=== PATIENT | male | born 1990 | race Caucasian/White ===

== ENCOUNTER 2018-08-16 19:15 | Emergency (ER) | payer SELFPAY ==
[2018-08-16 20:06] LABS: #Basophils 0.1 thou/uL (0.0-0.2); #Eosinphils 0.2 thou/uL (0.0-0.7); #Lymphocytes 3.8 thou/uL (1.20-3.40); #Monocytes 0.6 thou/uL (0.11-0.59); #Neutrophils 4.2 thou/uL (1.40-6.50); %Basophils 0.7 % (0.0-1.0); %Eosinophils 2.2 % (0.0-10.0); %Monocytes 6.5 % (0.0-10.0); %Neutrophils 47.5 % (42.0-75.0); Hemoglobin 16.5 g/dL (14.0-18.0); Mean Corpuscular HGB CONC 33.8 g/dL (32.0-36.0); Mean Corpuscular Volume 88.6 fL (78.0-98.0); Mean Platelet Volume 6.8 fL (7.4-10.4); Platelet Count 327 thou/uL (130-400); RBC Distribution Width 11.2 % (11.5-14.5); Red Blood Cell (RBC) Count 5.51 mill/uL (4.70-6.10); White Blood Cell (WBC) Count 8.9 thou/uL (4.8-10.8)
--- NOTE | 2018-08-16 20:22 | RAD ---
CHEST TWO VIEWS: History: Chest pain. FINDINGS: Cardiac silhouette and pulmonary vasculature are unremarkable. Mediastinum is midline. No confluent a irspace consolidation, pneumothorax, or pleural fluid. Pectus excavatum apparent on the lateral view. IMPRESSION: No active cardiopulmonary abnormalities are demonstrated. POS: [facility]
[2018-08-16 20:31] LABS: ALT (SGPT) 53 U/L (8-55); AST (SGOT) 28 U/L (5-34); Albumin 4.6 g/dL (3.5-5.0); Alkaline Phosphatase 82 U/L (40-150); Anion Gap 12 mmol/L (10-20); BUN (Urea Nitrogen) 11 mg/dL (8.9-20.6); Bilirubin, Total 0.5 mg/dL (0.2-1.2); Calc. Creatinine Clearance 0 mL/min (70-130); Calcium 9.8 mg/dL (7.8-10.44); Carbon Dioxide 22 mmol/L (22-29); Chloride 106 mmol/L (98-107); Estimated GFR-MDRD Greater than 90; Globulin 3.2 g/dL (2.4-3.5); Glucose 91 mg/dL (70-105); Potassium 4.2 mmol/L (3.5-5.1); Protein, Total 7.8 g/dL (6.0-8.3); Sodium 136 mmol/L (136-145)
[2018-08-16] MEDS ORDERED: Aspirin Chewable 81 MG TAB ONE (20:43)
[2018-08-16] MEDS ORDERED: Ibuprofen 800 MG TAB ONE (22:29)
== END 2018-08-17 00:27 | disposition home or self-care (01) ==
LOC: ERS 19:15
DX: R07.89 Other chest pain (principal); F17.220 Nicotine dependence, chewing tobacco, uncomplicated; Z86.711 Personal history of pulmonary embolism; Z79.01 Long term (current) use of anticoagulants
CPT/HCPCS: 36415; 71046; 80053; 84484; 85025; 85379; 93005

== ENCOUNTER 2019-09-27 00:12 | Observation (INO) | payer OTHER, SELFPAY ==
[2019-09-27] MEDS ORDERED: Morphine 4 MG/ML VIAL ONE (01:29)
[2019-09-27] MEDS ORDERED: Ondansetron PF 4 MG/2 ML Vial ONE ×2 (01:29→09:58)
[2019-09-27] MEDS ORDERED: Dextrose 50% Abboject 50 ML SYRINGE SLOW IVP PRN (02:48)
[2019-09-27] MEDS ORDERED: Cyclobenzaprine 10 MG TAB PO PRN (02:48)
[2019-09-27] MEDS ORDERED: traMADol HCl 50 MG TAB PO PRN (02:48)
[2019-09-27] MEDS ORDERED: Dextrose 5% in Water 1,000 ML IV PRN (02:48)
[2019-09-27] MEDS ORDERED: Ondansetron PF 4 MG/2 ML Vial IVP PRN (02:48)
[2019-09-27] MEDS ORDERED: Ondansetron ODT 4 MG TAB PO PRN (02:48)
[2019-09-27 02:54] VITALS: BMI 37.5
[2019-09-27] MEDS: traMADol HCl 50 MG TAB PO SCH ×4 (03:04→20:57)
[2019-09-27] MEDS: Acetaminophen 500 MG TAB PO SCH ×4 (03:04→20:57)
[2019-09-27] MEDS: Ibuprofen 800 MG TAB PO SCH ×3 (03:04→18:55)
--- NOTE | 2019-09-27 03:33 | HP ---
REQUESTING PHYSICIAN: . ATTENDING SURGEON: Dr. Mcfarlane. CONSULTATIONS: Orthopedics, Dr. Mena. HISTORY OF PRESENT ILLNESS: The patient is a 28-year-old man who was transferred here from the [facility] status post having his left foot going through a floor in which he sustained a left calcaneus fracture, distal fibular fracture, and navicular fracture. The patient was transferred to our facility for orthopedic evaluation and possible admission. The patient denied loss of consciousness and his left foot and ankle are his only chief complaint. ALLERGIES: NONE. CURRENT MEDICATIONS: The patient takes [id number] allergy medicines. PAST MEDICAL HISTORY: Prior history of pulmonary embolus treated with Xarelto in 2016. PAST SURGICAL HISTORY: Right femur ORIF. SOCIAL HISTORY: The patient lives at home with his spouse. He drinks rarely and chews tobacco. Denies drug use. 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 REVIEW OF SYSTEMS: 10-point review of systems is negative as otherwise stated. PHYSICAL EXAMINATION: VITAL SIGNS: Blood pressure is 142/85, heart rate 81, respirations 16, oxygen saturation 95% on room air, and temperature is 97.8. GENERAL: The patient is resting comfortably in bed. He is awake, alert, and oriented. [place] Coma Scale is 15. HEENT: Head is normocephalic. Eyes, extraocular motion intact. PERRLA bilaterally. Ears are atraumatic without discharge. Nose is atraumatic without discharge. Oropharynx is clear. NECK: Nontender. Trachea is midline. No JVD. CHEST: Clear to auscultation with good inspiratory and expiratory effort. HEART: Regular rate and rhythm. ABDOMEN: Soft, flat, nontender with active bowel sounds. EXTREMITIES: Neurovascularly intact x4. Left lower extremity is in a pre-hospital splint, he is neurovascularly intact. He does show global swelling to the posterior foot and ankle. Sensation is intact. Pulses are 2+. BACK: Atraumatic and nontender. LABORATORY DATA: There are no labs to review. RADIOGRAPHS: Views of the left ankle show a likely depression type fracture of the calcaneus as well as a retracted distal fibular fracture below the syndesmosis. There is also an osseous avulsion of the medial margin of the navicular. CT examination of the left lower extremity without contrast shows a Mares type 4 fracture of the calcaneus with a 13 mm separation of fracture fragments, mid calcaneus with moderately severe comminution. Fracture lines extend into the posterior and middle facet. There is a fracture involving the posterior aspect of the lateral malleolus with laterally displaced fragment over the distance of 1.3 cm. There are small chip fractures of the inferior lateral and medial aspect of the navicular, possibly nondisplaced fracture involving the distal aspect of the tibia laterally adjacent to the fibula. ASSESSMENT: 1. Status post partial fall through nisa of approximately 2 feet. 2. Fracture of left hind foot and ankle. 3. Acute pain secondary to above. PLAN: Plan will be to admit the patient to the surgical floor for evaluation in the morning with Orthopedics. Per brief discussion with Dr. Mena, the patient likely will have to wait 7-10 days due to expected swelling from this injury. We will admit him for pain control, pulmonary toilet, gastritis and mechanical VTE prophylaxis. We will have him placed in a splint and begin work with physical and occupational therapy. The evaluation, examination, laboratory, and radiographic findings were discussed with Dr. Mcfarlane after this dictation. Job ID: [id number]
[2019-09-27] MEDS: Sodium Chloride 0.9% 1,000 ML IV SCH ×2 (06:52→15:49)
[2019-09-27] MEDS ORDERED: CEFAZOLIN 2 GM in Premix Bag 1 BAG IVPB SCH (08:00)
[2019-09-27 08:16] LABS: #Basophils 0.1 thou/uL (0.0-0.2); #Eosinphils 0.2 thou/uL (0.0-0.7); #Lymphocytes 3.5 thou/uL (1.20-3.40); #Monocytes 0.8 thou/uL (0.11-0.59); #Neutrophils 7.4 thou/uL (1.40-6.50); %Basophils 0.5 % (0.0-1.0); %Eosinophils 1.8 % (0.0-10.0); %Lymphocytes 29.1 % (21.0-51.0); %Monocytes 6.4 % (0.0-10.0); %Neutrophils 62.2 % (42.0-75.0); Hemoglobin 15.5 g/dL (14.0-18.0); Mean Corpuscular HGB CONC 32.9 g/dL (32.0-36.0); Mean Corpuscular Hemoglobin 30.2 pg (27.0-31.0); Mean Corpuscular Volume 91.8 fL (78.0-98.0); Mean Platelet Volume 7.1 fL (7.4-10.4); Platelet Count 282 thou/uL (130-400); RBC Distribution Width 11.5 % (11.5-14.5); Red Blood Cell (RBC) Count 5.13 mill/uL (4.70-6.10); White Blood Cell (WBC) Count 11.9 thou/uL (4.8-10.8)
[2019-09-27 08:39] LABS: Anion Gap 13 mmol/L (10-20); BUN (Urea Nitrogen) 12 mg/dL (8.9-20.6); Calc. Creatinine Clearance 222 mL/min (70-130); Calcium 9.1 mg/dL (7.8-10.44); Carbon Dioxide 26 mmol/L (22-29); Chloride 103 mmol/L (98-107); Estimated GFR-MDRD Greater than 90; Glucose 85 mg/dL (70-105); Magnesium 1.9 mg/dL (1.6-2.6); Phosphorus 4.8 mg/dL (2.3-4.7); Sodium 138 mmol/L (136-145)
--- NOTE | 2019-09-27 09:31 | CT ---
PRELIMINARY REPORT/[facility]/EMERGENCY AFTER HOURS PROCEDURE: PROCEDURE: CT LEFT lower extremity without contrast. HISTORY: LEFT foot and ankle fracture with decreased sensation LEFT foot. TECHNIQUE: Axial images were done through the LEFT ankle and foot without contrast with multiplanar r eformations. COMPARISONS: None . FINDINGS: Mares type IV fracture to the calcaneus with 13 mm of separation of fracture fragments mid calcaneu s with moderately severe comminution. Fracture lines extend into the posterior and middle facet.. Fracture involving posterior aspect of the lateral malleolus with laterally displaced to centimeter f ragment over a distance of 1.3 cm. Small chip fractures off the inferior lateral and medial aspect of the navicular. Possible nondisplaced fracture involving distal aspect of the tibia laterally adjacent to the fibula. No other fracture or dislocation. Mild soft tissue hemorrhage about the fracture sites. IMPRESSION: Mares type IV fracture involving calcaneus with involvement of the posterior facet and separation o f fracture fragments with moderately severe comminution. Fracture involving lateral malleolus and navicular as described above. Soft tissue hemorrhage. ELECTRONICALLY SIGNED BY: Marco A Blue MD September 27, 2019 1:18:02 AM CDT This report is intended for review by the ordering physician only, in accordance of law. If you recei ve this report in error, please call [facility] at [phone]. FINAL REPORT CT OF LEFT FOOT PERFORMED WITHOUT CONTRAST ENHANCEMENT: HISTORY: The patient fell through a roof. FINDINGS: There is a comminuted intraarticular fracture of the calcaneus present. The fracture has 3 main comp onents. There is a sagittal obliquely oriented fracture line. This fracture line is lateral to the groove of the flexor halluces longus tendon. The sustentaculum glenis maintains a fairly normal articu lar relationship with the talus. The central third of this fracture is a comminuted depressed fragme nted fracture that involves the medial half of the articular surface of the posterior talar articular surface. The fragment is very comminuted. The lateral third of this fracture is displaced laterall y. It lies slightly perched on the lateral margin of the talus and actually directly abuts the dista l end poof the fibula. There is an associated fracture along the posterior lateral margin of the dis tanvir fibula. This fracture fragment forms a part of the groove of the peroneus longus and brevis tend ons which still lie directly posterior to this fracture fragment. Fracture line extends to the later al margin of the calcaneal cuboid joint. Fracture does extend to involve the anterior process of the calcaneus which is somewhat comminuted in appearance. Also noted is a navicular fracture with small avulsion fracture involving the medial edge of the pedro cular at the level of the posterior tibialis tendon insertion. In addition, there is a small avulsio n fracture involving the more lateral plantar surface of the navicular. This is at the level of the spring ligament complex. No associated medial malleolar fracture is visualized. IMPRESSION: 1. Comminuted intraarticular calcaneal fracture as discussed above also with a distal fibular fractu re and small avulsion fractures from the navicular. 2. Findings are in agreement with the temporary report issued by [facility]. [place] [facility] [place]
[2019-09-27] MEDS ORDERED: Lidocaine 1% PF 5 ML VIAL ONE (09:58)
[2019-09-27] MEDS ORDERED: Dexamethasone 20 MG/5 ML VIAL ONE (09:58)
[2019-09-27] MEDS ORDERED: Glycopyrrolate 0.2 MG/ML 5 ML SYRINGE ONE (09:58)
[2019-09-27] MEDS ORDERED: PROPOFOL 200 MG/20 ML VIAL ONE (09:58)
[2019-09-27] MEDS ORDERED: PHENYLEPHRINE-NS 100 MCG/ML 10 ML SYRINGE ONE (09:58)
[2019-09-27] MEDS ORDERED: EPHEDRINE 25 MG/5 ML SYRINGE ONE (09:58)
[2019-09-27] MEDS ORDERED: Rocuronium Bromide 10 MG/ML (10ML VIAL) ONE (09:58)
[2019-09-27] MEDS ORDERED: Succinylcholine Chloride 20 MG/ML 10 ml SYRINGE FS ONE (09:58)
[2019-09-27] MEDS ORDERED: Morphine 4 MG/ML VIAL SLOW IVP PRN (10:03)
--- NOTE | 2019-09-27 10:26 | CON ---
DATE OF CONSULTATION: 09/27/2019 CHIEF COMPLAINT: Left foot pain. HISTORY OF PRESENT ILLNESS: Mr. Painting is a 28-year-old male, who was helping a friend move a gun safe yesterday evening. The patient's foot broke through the floor and he fell approximately 2 feet. He landed hard on his left leg. He was loading his leg with a gun safe weight as well. He had pain and swelling. He was taken to the emergency department. X-rays determined a calcaneus fracture as well as a lateral fibular fracture. He has been splinted and admitted to the hospital. He is currently resting comfortably. He has received pain medications. Of note, he has had a previous femur fracture on the right leg and had a DVT, postoperative. This was several years ago. PAST MEDICAL HISTORY: DVT, otherwise he denies active medical problems. PAST SURGICAL HISTORY: Right femur intramedullary nail. ALLERGIES: NO KNOWN DRUG ALLERGIES. MEDICATIONS: No active medications. SOCIAL HISTORY: The patient drinks alcohol occasionally. Denies tobacco or drug use. 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 FAMILY MEDICAL HISTORY: Noncontributory. IMAGING STUDIES: X-rays of the left calcaneus as well as CT scan are reviewed, which demonstrates an impacted and displaced calcaneal fracture. The patient also has a distal fibular fracture. PHYSICAL EXAMINATION: VITAL SIGNS: Temperature is 98.1, pulse is 83, respiratory rate is 18, blood pressure is 126/83. GENERAL: He is alert and oriented, sitting upright in no apparent distress. RESPIRATORY: Breathing comfortably. ABDOMEN: Soft, nontender, and nondistended. MUSCULOSKELETAL: The patient's left lower extremity has minimal swelling. His splint was removed. There is no blistering. Skin is intact and wrinkles. He is tender to palpation of the distal fibula. He has intact sensation in the dorsal and plantar foot. He is able to move the toes. IMPRESSION: Left calcaneal fracture and distal fibular fracture. PLAN: At this point, the patient will require surgical intervention. He really has minimal swelling and I think his skin is amenable to surgical correction today. We will plan for open reduction and internal fixation of the calcaneus. He is aware of risks and benefits. Risks to include DVT, especially given his history and he will need to be on blood thinners. He is also at risk for wound complication, bone healing complication, infection, and others. He will be n.p.o. until after surgery. He will have antibiotics on-call to the operating room. Job ID: [id number]
--- NOTE | 2019-09-27 13:18 | PRG ---
DATE OF SERVICE: 09/27/2019 SUBJECTIVE: The patient was seen this morning during rounds. He was sitting up in bed with no signs of acute distress. His left lower extremity was splinted. He is pending to go to the OR today for fixation of his left calcaneal and left distal fibular fracture by Dr. Mena of Orthopedic Surgery. He reported his pain had been well controlled, but more recently reported pain /10. OBJECTIVE: VITAL SIGNS: Temperature 97.9, pulse 64, respirations 16, oxygen saturation 93% on room air, and blood pressure 117/76. GENERAL: Well-appearing young male, sitting up in bed with no signs of acute distress. PULMONARY: Equal chest rise and fall. Clear breath sounds bilaterally. No signs of acute respiratory distress. CARDIAC: Regular rate and rhythm. GI: Abdomen is soft, nontender, nondistended. EXTREMITIES: 2+ pulses in all extremities. Gross motor and sensation intact. No significant swelling noted. Left lower extremity with splint to foot and tib-fib that is clean, dry, and intact with no signs of oozing. NEUROLOGIC: GCS is 15. LABORATORY FINDINGS: White count 11.9, hemoglobin 15.5, hematocrit 47.1, platelets 282. Sodium 138, potassium 4.0, chloride 103, bicarb 26, BUN 12, creatinine 0.89, phosphorus 4.8, magnesium 1.9. DIAGNOSTIC FINDINGS: There are no new diagnostic findings to report. ASSESSMENT: 1. Status post fall through nisa. 2. Left calcaneal fracture. 3. Left distal fibular fracture. 4. History of deep venous thrombosis after previous femur fracture several years ago. PLAN: Continue current n.p.o. status. Continue maintenance IV fluids. Continue p.o. and IV pain medications. The patient to go to the OR today with Ortho. We will follow up further recommendations postop and advance diet as well as discontinue IV fluids. The patient will likely be able to go home at the time of discharge and not require rehab placement. He will need to be discharged with chemo DVT prophylaxis with his history of DVT in the past. This patient was seen and examined by Dr. Rivera and myself this morning during rounds. Job ID: [id number]
[2019-09-27] MEDS ORDERED: Fentanyl 100 MCG/2 ML VIAL ONE ×2 (14:04→16:31)
[2019-09-27] MEDS ORDERED: Lidocaine 1% (PF) 30 ML VIAL ONE (15:36)
[2019-09-27] MEDS ORDERED: Bupivacaine 0.25% HCL 30 ML VIAL ONE (15:37)
--- NOTE | 2019-09-27 15:51 | RAD ---
Exam:Intraoperative fluoroscopy HISTORY: Calcaneal fracture COMPARISON: None FINDINGS: 4 fluoroscopic views demonstrate internal fixation traversing the calcaneus. Fracture lucen cy is noted. Exposure: 35.6 seconds. 1.08 mGy IMPRESSION: Intraoperative fluoroscopy
[2019-09-27] MEDS ORDERED: Morphine Sulfate 2 MG/ML SYRINGE SLOW IVP PRN (16:01)
[2019-09-27] MEDS ORDERED: PACU-Morphine 4MG/ML VIAL SLOW IVP PRN (16:01)
[2019-09-27] MEDS ORDERED: Ondansetron HCl/PF 4 MG/2 ML Vial IVP PRN (16:01)
[2019-09-27] MEDS ORDERED: Promethazine HCl 25 MG/ML VIAL IM PRN (16:01)
[2019-09-27] MEDS ORDERED: HYDROmorphone 2 MG/ML VIAL SLOW IVP PRN (16:01)
[2019-09-27] MEDS ORDERED: Promethazine HCl 25 MG/ML VIAL SLOW IVP PRN (16:01)
[2019-09-27] MEDS ORDERED: Promethazine HCl 25 MG/ML VIAL ONE (16:15)
--- NOTE | 2019-09-27 23:58 | OP ---
DATE OF PROCEDURE: 09/27/2019 OPERATION PERFORMED: Open reduction, internal fixation of left calcaneus fracture and open reduction of left distal fibular fracture. PREOPERATIVE DIAGNOSES: Left displaced intra-articular calcaneus fracture with subtalar dislocation and distal fibular fracture. POSTOPERATIVE DIAGNOSES: Left displaced intra-articular calcaneus fracture with subtalar dislocation and distal fibular fracture. COMPLICATIONS: None. ESTIMATED BLOOD LOSS: Minimal. DISTRIBUTION OPERATIONS SUPERVISOR: Santos Márquez. IMPLANT: Synthes subtalar plate with multiple nonlocking screws 2.7 mm. INDICATIONS: Mr. Painting is a 28-year-old male who fractured his calcaneus after stepping through a floor. He had a partial dislocation of his subtalar joint with a split calcaneus. He was indicated for open reduction, internal fixation of the calcaneus as well as exploration of his peroneal tendons with reduction of the distal fibula fracture. DESCRIPTION OF PROCEDURE: Mr. Paniting was identified in the preoperative holding area. His correct extremity was marked. He was carried to the operating room. He was positioned supine. General anesthesia was induced. A multidisciplinary time-out was performed. The left lower extremity was prepped and draped in sterile fashion. We converted the patient to the lateral decubitus position. At this point, we proceeded to perform a posterolateral incision over the fibula following the peroneal tendons. We dissected down to the tendon sheath. The sheath was opened and the tendons were retracted inferiorly. This brought us down to the subtalar joint. We encountered the dislocated lateral calcaneus and identified the subtalar joint. We placed a Steinmann pin in the calcaneus. We pulled traction on this. We were able then to reduce the dislocation back to its anatomic position. This reduced our calcaneal fracture well. We took x-ray images confirming this. We then applied a Synthes subtalar rim plate. We applied multiple screws across the split fracture site. Again, we guided these with intraoperative x-ray. We took final images. We checked range of motion. There were no complications. We thoroughly irrigated with copious lavage. We then repaired the peroneal retinaculum supporting our tendons. Next, we finished our layered closure. A sterile dressing was applied at this point without complication. Job ID: [id number]
--- NOTE | 2019-09-28 | PRG ---
DATE OF SERVICE: 09/27/2019 SUBJECTIVE: The patient was seen during evening rounds. The patient is awake, alert, in no distress. The patient's pain is controlled at this time. The patient does report some muscular spasms earlier. The patient is tolerating a regular diet. The patient voices no complaints or concerns at this time. The patient states he has not ambulated since he has returned from surgery. OBJECTIVE: VITAL SIGNS: Temperature 98.0, pulse 63, respirations 18, SpO2 of 93% on room air, blood pressure 129/79. GENERAL: Well-appearing young male, sitting up in bed, in no acute distress. PULMONARY: Good inspiratory and expiratory effort. Respirations are even and nonlabored. CARDIAC: Regular rate and regular rhythm. EXTREMITIES: Moves all extremities. Left lower extremity with splint and dressing clean, dry, and intact. NEUROLOGIC: No focal deficits. GCS 15. ASSESSMENT: 1. Status post fall through nisa. 2. Left calcaneus fracture, postop repair. 3. Left distal fibular fracture. 4. History of deep venous thrombosis. PLAN: Continue regular diet and supportive care. Continue pain regimen. Continue Lovenox for VTE prophylaxis. We will have Physical and Occupational Therapy work with the patient. If the patient is able to ambulate safely tomorrow, he will most likely be discharged home. The plan was discussed with the patient who agrees. Job ID: [id number]
[2019-09-28] MEDS: Acetaminophen 500 MG TAB PO SCH ×3 (01:51→15:04)
[2019-09-28] MEDS: traMADol HCl 50 MG TAB PO SCH ×3 (01:51→15:04)
[2019-09-28] MEDS: Ibuprofen 800 MG TAB PO SCH ×2 (01:51→11:28)
[2019-09-28 07:56] VITALS: TEMP 98.3
[2019-09-28] MEDS ORDERED: Enoxaparin Sodium 30 MG/0.3 ML SYRINGE SC SCH (09:00)
[2019-09-28 11:56] VITALS: BP 132/70
--- NOTE | 2019-09-28 15:21 | DIS ---
DATE OF ADMISSION: 09/27/2019 DATE OF DISCHARGE: 09/28/2019 ADMISSION DIAGNOSES: Fall through floor, left calcaneal fracture and left distal fibular fracture. DISCHARGE DIAGNOSES: Fall through floor, left calcaneal fracture and left distal fibular fracture. CONSULTING PHYSICIAN: Dr. Mena of Orthopedic Surgery. PROCEDURES: The patient went to the OR on September 27, 2019, and had ORIF of the left calcaneal fracture and open reduction of the left distal fibular fracture. HOSPITAL COURSE: The patient is a 28-year-old male, who presented to the emergency department after falling through a floor while trying to move a safe. He was found to have a left calcaneus fracture and a left distal fibular fracture. He was evaluated by Orthopedic Surgery and went to the OR the same day of admission. On postop day 1, the patient was discharged home. He does have a history of DVT after a femur fracture during a previous hospitalization and for that reason, he received 2 weeks of Lovenox followed by 81 mg of aspirin b.i.d. DISCHARGE DISPOSITION: Home. DISCHARGE CONDITION: Satisfactory. PHYSICAL EXAMINATION: VITAL SIGNS: Temperature 98.3, pulse 75, respirations 20, oxygen saturation 93 % on room air, and blood pressure 131/75. GENERAL: Well-appearing young male, sitting up in bed with no signs of acute distress. PULMONARY: Equal chest rise and fall. Clear breath sounds bilaterally. No signs of acute respiratory distress. CARDIAC: Regular rate and rhythm. GASTROINTESTINAL: Abdomen is soft, nontender, and nondistended. EXTREMITIES: 2+ pulses in all extremities. Gross motor and sensation intact. No significant swelling noted. Splint to left lower extremity is clean, dry, and intact. NEUROLOGIC: GCS is 15. DIAGNOSTIC FINDINGS: There are no new diagnostic findings to report. DISCHARGE INSTRUCTIONS: The patient was discharged home. Activity, as tolerated. Nonweightbearing to left lower extremity. Regular diet. He can use crutches or a walker. DISCHARGE MEDICATIONS: Include; 1. Tylenol. 2. Flexeril. 3. Lovenox 30 mg subcu b.i.d. x14 days. 4. Ibuprofen. 5. Tramadol. The patient was also advised to take 81 mg of aspirin b.i.d. after his Lovenox prescription for DVT prophylaxis. FOLLOWUP APPOINTMENTS: The patient is to follow up with Dr. Mena, Orthopedic Surgery in 10 days. He will follow up as needed with [facility]. The patient was looked up in the [facility] and there was no prescriptions found. Subsequently, he received a prescription for tramadol. This is merely a summary of the patient's hospitalization. For full details, please see his medical record in its entirety. This patient was seen and evaluated by Dr. Rivera and myself on the day of discharge. Job ID: [id number] MTDD
== END 2019-09-28 15:15 | disposition home or self-care (01) ==
LOC: ERS 00:12 → SURG B 01:50 → INTOOBSV 01:50
PROVIDERS: ADMIT Orthopaedic Surgery; ATTEND Orthopaedic Surgery
PROC: 0QSM04Z Reposition Left Tarsal with Internal Fixation Device, Open Approach (ICD-10-PCS; principal; 2019-09-27)
PROC: 0QSK0ZZ Reposition Left Fibula, Open Approach (ICD-10-PCS; 2019-09-27)
DX: S92.062A Displaced intraarticular fracture of left calcaneus, initial encounter for closed fracture (principal); S82.832A Other fracture of upper and lower end of left fibula, initial encounter for closed fracture; S92.252A Displaced fracture of navicular [scaphoid] of left foot, initial encounter for closed fracture; F17.220 Nicotine dependence, chewing tobacco, uncomplicated; W17.89XA Other fall from one level to another, initial encounter
CPT/HCPCS: 29515; 36415; 76000; 80048; 83735; 84100; 85025; 96361; 96372; 96374; 96375; 96376; C1713; G0378; G0390; J0690; J1100; J1650; J2001; J2270; J2405; J2550; J2704; J3010; S0020

== ENCOUNTER 2019-10-08 23:22 | Emergency (ER) | payer SELFPAY ==
[~2019-10-08 23:22] MED LIST: Iopamidol 370 76% 100 ML VIAL ONE
[2019-10-08 23:59] LABS: #Eosinphils 0.4 thou/uL (0.0-0.7); #Lymphocytes 3.8 thou/uL (1.20-3.40); #Monocytes 0.6 thou/uL (0.11-0.59); #Neutrophils 3.6 thou/uL (1.40-6.50); %Basophils 0.2 % (0.0-1.0); %Eosinophils 5.3 % (0.0-10.0); %Lymphocytes 45.4 % (21.0-51.0); %Monocytes 6.5 % (0.0-10.0); %Neutrophils 42.6 % (42.0-75.0); Hemoglobin 15.9 g/dL (14.0-18.0); Mean Corpuscular HGB CONC 32.3 g/dL (32.0-36.0); Mean Corpuscular Hemoglobin 29.2 pg (27.0-31.0); Mean Corpuscular Volume 90.6 fL (78.0-98.0); Mean Platelet Volume 6.6 fL (7.4-10.4); Platelet Count 389 thou/uL (130-400); RBC Distribution Width 11.2 % (11.5-14.5); Red Blood Cell (RBC) Count 5.44 mill/uL (4.70-6.10); White Blood Cell (WBC) Count 8.4 thou/uL (4.8-10.8)
[2019-10-09 00:20] LABS: ALT (SGPT) 77 U/L (8-55); AST (SGOT) 30 U/L (5-34); Albumin 4.4 g/dL (3.5-5.0); Alkaline Phosphatase 89 U/L (40-110); Anion Gap 15 mmol/L (10-20); BUN (Urea Nitrogen) 12 mg/dL (8.9-20.6); Bilirubin, Total 0.3 mg/dL (0.2-1.2); Calcium 9.7 mg/dL (7.8-10.44); Carbon Dioxide 20 mmol/L (22-29); Chloride 105 mmol/L (98-107); Globulin 3.3 g/dL (2.4-3.5); Glucose 110 mg/dL (70-105); Potassium 3.8 mmol/L (3.5-5.1); Protein, Total 7.7 g/dL (6.0-8.3); Sodium 136 mmol/L (136-145)
[2019-10-09 00:26] LABS: Calc. Creatinine Clearance 0 mL/min (70-130); Estimated GFR-MDRD Greater than 90
--- NOTE | 2019-10-09 07:54 | CT ---
CTA CHEST WITH CONTRAST: Date: 10/08/2019 COMPARISON: None. HISTORY: Shortness of breath and right-sided chest pain. TECHNIQUE: Multiple contiguous axial images were obtained in a CTA of the chest with contrast per pulmonary embo lism protocol. 3D oblique MIP reformats and direct coronal reformats were performed. FINDINGS: The pulmonary arteries are well opacified without filling defect to suggest pulmonary emboli. The hea rt is normal in size without focal cardiac abnormality. No hilar or mediastinal lymphadenopathy seen. No focal infiltrates or masses are seen in the lungs. No pneumothorax or pleural effusions seen. Mild degenerative changes are seen in the spine. The visualized subdiaphragmatic structures are unrem arkable. The chest wall soft tissues are unremarkable. IMPRESSION: No evidence of pulmonary thromboembolism. POS: [facility]
--- NOTE | 2019-10-12 15:49 | EKG ---
Test Reason : Blood Pressure : / mmHG Vent. Rate : 096 BPM Atrial Rate : 096 BPM P-R Int : 132 ms QRS Dur : 098 ms QT Int : 352 ms P-R-T Axes : 045 008 016 degrees QTc Int : 444 ms Normal sinus rhythm Possible Left atrial enlargement Left ventricular hypertrophy Abnormal ECG Confirmed by JAMIA VU ([id number]), newspaper managing editor GARCIA RIVAS ([id number]) on 10/12/2019 3:48:31 PM Referred By: Confirmed By:JAMIA VU
== END 2019-10-09 00:41 | disposition home or self-care (01) ==
LOC: ERS 23:22
DX: R07.9 Chest pain, unspecified (principal); R06.00 Dyspnea, unspecified; Z86.718 Personal history of other venous thrombosis and embolism; F17.220 Nicotine dependence, chewing tobacco, uncomplicated
CPT/HCPCS: 36415; 71275; 80053; 85025; 85379; 93005; Q9967